=== PATIENT | female | born 1990 | race Caucasian/White ===

== ENCOUNTER 2016-10-09 16:24 | Emergency (ER) | payer OTHER ==
[~2016-10-09] VITALS: Ht 170.2 cm; Wt 107.6 kg
[~2016-10-09 16:24] MED LIST: CEFTIN250 MG PO; CITALOPRAM HBR20 MG PO; CLARITIN10 M3 PO; FLEXERIL10 MG PO; FLONASE16 G1 BOTH NARES; GABAPENTIN300 MG PO; IBUPROFEN800 MG PO; KLONOPIN0.125 MG; LITHIUM CARBON150 MG PO; LITHIUM CARBON600 MG PO; LORATADINE10 M2 PO; MOTRIN800 MG PO; NAPROSYN500 MG PO; NICODERM CQ1 EAC2 TD; PERCOCET 5/31 TABLET PO; PROZAC40 MG PO; TESSALON200 MG PO; TYLENOL EXTRA500 MG PO; ULTRAM50 MG PO; VENTOLIN HFA18 GM IH; ZITHROMAX250 MG PO; ZOFRAN ODT4 MG PO
[2016-10-09] MEDS ORDERED: RISPERIDONE1 MG PO (16:49)
[2016-10-09] MEDS ORDERED: LEVOTHYROXINE125 MCG PO (16:50)
[2016-10-09] MEDS ORDERED: LITHIUM CARBON600 MG PO (16:50)
[2016-10-09] MEDS ORDERED: LITHIUM CARBON150 MG PO (16:50)
[2016-10-09] MEDS ORDERED: PROAIR HFA8.5 GM IH (16:50)
[2016-10-09] MEDS ORDERED: BUSPAR (16:51)
[2016-10-09] MEDS ORDERED: CLONIDINE HCL0.1 MG PO (17:52)
[2016-10-09] MEDS ORDERED: TRAZODONE HCL50 MG PO (17:52)
[2016-10-09 17:57] VITALS: BP 115/78
[2016-10-09 18:07] LABS: HEMATOCRIT 39.7 % (36.0-46.0); MCH 27.9 PG (29.0-34.0); MCV 84.5 FL (83-99); MEAN PLAT.VOLUME 10.8 uM^3 (9.5-12.4); PLATELET COUNT 358 K/uL (156-360); RBC DIS.WIDTH-SD 39.8 % (39-53); WHITE BLOOD COUNT 8.9 K/uL (4.1-10.2)
[2016-10-09 18:25] LABS: CHLORIDE 107 mEq/L (99-109); POTASSIUM 3.6 mEq/L (3.7-5.4); SODIUM 139 mEq/L (136-147)
[2016-10-09 18:28] LABS: GLUCOSE 105 mg/dL (70-99)
[2016-10-09 18:29] LABS: ANION GAP 9 MEQ/L (2-14); TOTAL BILIRUBIN 0.5 mg/dL (0.0-1.0)
[2016-10-09 18:30] LABS: SERUM ETHYL ALCOHOL < 10 mg/dL
[2016-10-09 18:31] LABS: ALKALINE PHOSPHATASE 79 IU/L (3-129); GFR ESTIMATE (CALCULATED) > 59 mL/min/
[2016-10-09 18:32] LABS: UREA NITROGEN (BUN) 8 mg/dL (9-23)
== END 2016-10-09 18:05 | disposition home or self-care (01) ==
LOC: EME 16:24
PROVIDERS: Emergency Medicine
DX: F11.10 Opioid abuse, uncomplicated (principal); F32.9 Major depressive disorder, single episode, unspecified; F41.9 Anxiety disorder, unspecified; J45.909 Unspecified asthma, uncomplicated; M79.7 Fibromyalgia; E03.9 Hypothyroidism, unspecified; F17.200 Nicotine dependence, unspecified, uncomplicated; Z88.0 Allergy status to penicillin
CPT/HCPCS: 80053; 81003; 85027; 90832; 99281; 99285; G0480